=== PATIENT | female | born 1975 | race Two or more races ===

== ENCOUNTER 2017-12-30 20:22 | Emergency (ER) | payer MEDICAID ==
[~2017-12-30] VITALS: Ht 177.8 cm; Wt 97.5 kg
[2017-12-30 20:29] VITALS: Ht 177.8 cm; Wt 97.5 kg
[2017-12-30 21:26] LABS: BASOPHIL % 0.3 % (0-2); PLATELET COUNT 229 x10^3mcL (130-400); RED CELL DISTRIBUTION WIDTH 14.1 % (11.5-14.5)
[2017-12-30 21:39] LABS: CALCIUM 8.8 mg/dL (8.5-10.1); CARBON DIOXIDE 23.8 mmol/L (21-32); CHLORIDE SERUM 103 mmol/L (98-107); CREATININE SERUM 0.9 mg/dL (0.6-1.0); GFR1 > 60 mL/min; GLUCOSE SERUM 114 mg/dL (74-106); POTASSIUM SERUM 4.2 mmol/L (3.5-5.1); SODIUM SERUM 136 mmol/L (136-145)
[2017-12-30 21:43] LABS: ALBUMIN 3.6 g/dL (3.4-5.0); ALKALINE PHOSPHATASE 35 U/L (46-116); ALT/SGPT 65 U/L (14-59); AST/SGOT 38 U/L (15-37); BILIRUBIN TOTAL 0.2 mg/dL (0.20-1.00); TOTAL PROTEIN, SERUM 7.5 g/dL (6.4-8.2)
[2017-12-31 00:08] VITALS: BP 110/56
== END 2017-12-31 00:08 | disposition home or self-care (01) ==
LOC: ED 20:22
PROVIDERS: Emergency Medicine
DX: R07.89 Other chest pain (principal); M54.5 Low back pain; M54.30 Sciatica, unspecified side
CPT/HCPCS: 36415; 83880; J1885; Q0092

== ENCOUNTER 2018-01-07 18:55 | Emergency (ER) | payer MEDICAID ==
[~2018-01-07] VITALS: Ht 177.8 cm; Wt 95.2 kg
[2018-01-07 19:12] VITALS: BP 111/82
== END 2018-01-07 20:08 | disposition home or self-care (01) ==
LOC: ED 18:55
DX: K12.0 Recurrent oral aphthae (principal)

== ENCOUNTER 2018-03-23 16:06 | Emergency (ER) | payer MEDICAID ==
[~2018-03-23] VITALS: Ht 177.8 cm; Wt 96.2 kg
[2018-03-23 16:08] VITALS: Ht 177.8 cm; Wt 96.2 kg
[2018-03-23 16:53] VITALS: BP 124/75
== END 2018-03-23 16:53 | disposition home or self-care (01) ==
LOC: ED 16:06
DX: K62.5 Hemorrhage of anus and rectum (principal); R50.9 Fever, unspecified

== ENCOUNTER 2018-05-13 11:11 | Emergency (ER) | payer MEDICAID ==
[~2018-05-13] VITALS: Ht 177.8 cm; Wt 96.6 kg
[2018-05-13 11:21] VITALS: Ht 177.8 cm; Wt 96.6 kg
[2018-05-13 13:47] VITALS: BP 102/57
== END 2018-05-13 13:47 | disposition home or self-care (01) ==
LOC: ED 11:11
DX: S29.011A Strain of muscle and tendon of front wall of thorax, initial encounter (principal); X58.XXXA Exposure to other specified factors, initial encounter; Y93.89 Activity, other specified; Y92.89 Other specified places as the place of occurrence of the external cause; Y99.8 Other external cause status
CPT/HCPCS: J1885; Q0092

== ENCOUNTER 2018-06-08 11:44 | Emergency (ER) | payer MEDICAID ==
[~2018-06-08] VITALS: Ht 175.3 cm; Wt 100.2 kg
[2018-06-08 11:50] VITALS: BP 115/82; Ht 175.3 cm; Wt 100.2 kg
== END 2018-06-08 12:42 | disposition home or self-care (01) ==
LOC: ED 11:44
DX: J06.9 Acute upper respiratory infection, unspecified (principal)

== ENCOUNTER 2018-06-18 18:45 | Emergency (ER) | payer MEDICAID ==
[~2018-06-18] VITALS: Ht 175.3 cm; Wt 99.3 kg
[2018-06-18 18:53] VITALS: Ht 175.3 cm; Wt 99.3 kg
[2018-06-18 20:50] LABS: BASOPHIL % 0.4 % (0-2); PLATELET COUNT 254 x10^3mcL (130-400)
[2018-06-18 20:57] LABS: CALCIUM 8.3 mg/dL (8.5-10.1); CARBON DIOXIDE 23.8 mmol/L (21-32); CHLORIDE SERUM 107 mmol/L (98-107); CREATININE SERUM 0.9 mg/dL (0.6-1.0); GFR1 > 60 mL/min; GLUCOSE SERUM 130 mg/dL (74-106); POTASSIUM SERUM 3.6 mmol/L (3.5-5.1); SODIUM SERUM 141 mmol/L (136-145)
[2018-06-18 21:01] LABS: ALKALINE PHOSPHATASE 44 U/L (46-116); ALT/SGPT 87 U/L (14-59); AST/SGOT 48 U/L (15-37); BILIRUBIN TOTAL 0.19 mg/dL (0.20-1.00); TOTAL PROTEIN, SERUM 7.3 g/dL (6.4-8.2)
[2018-06-18 21:14] LABS: ALBUMIN 3.2 g/dL (3.4-5.0)
[2018-06-18 21:32] LABS: AMPHETAMINE QUAL UR NONE DETECTED (See below)
[2018-06-18 22:40] VITALS: BP 110/73
== END 2018-06-18 22:40 | disposition home or self-care (01) ==
LOC: ED 18:45
PROVIDERS: Emergency Medicine
DX: R07.89 Other chest pain (principal); M54.42 Lumbago with sciatica, left side
CPT/HCPCS: 36415; G0480; J1885

== ENCOUNTER 2018-06-30 09:34 | Emergency (ER) | payer MEDICAID ==
[~2018-06-30] VITALS: Ht 175.3 cm; Wt 97.5 kg
[2018-06-30 09:43] VITALS: Ht 175.3 cm; Wt 97.5 kg
[2018-06-30 11:23] VITALS: BP 136/79
== END 2018-06-30 11:23 | disposition home or self-care (01) ==
LOC: ED 09:34
DX: M54.6 Pain in thoracic spine (principal); Z87.39 Personal history of other diseases of the musculoskeletal system and connective tissue; M54.40 Lumbago with sciatica, unspecified side
CPT/HCPCS: J1100; J1885

== ENCOUNTER 2018-07-08 19:43 | Emergency (ER) | payer MEDICAID ==
[2018-07-08 19:46] VITALS: Ht 175.3 cm
[2018-07-08 20:35] LABS: microscopic required? NO
[2018-07-08 20:44] LABS: UA SPECIFIC GRAVITY >=1.030 (1.005-1.035); urine erythrocyte NEGATIVE (NEGATIVE)
[2018-07-08 20:45] LABS: BASOPHIL % 0.4 % (0-2); PLATELET COUNT 236 x10^3mcL (130-400); RED CELL DISTRIBUTION WIDTH 13.6 % (11.5-14.5)
[2018-07-08 20:53] LABS: CALCIUM 8.3 mg/dL (8.5-10.1); CARBON DIOXIDE 24.3 mmol/L (21-32); CHLORIDE SERUM 104 mmol/L (98-107); CREATININE SERUM 0.8 mg/dL (0.6-1.0); GFR1 > 60 mL/min; GLUCOSE SERUM 171 mg/dL (74-106); POTASSIUM SERUM 3.7 mmol/L (3.5-5.1); SODIUM SERUM 139 mmol/L (136-145)
[2018-07-08 20:58] LABS: ALKALINE PHOSPHATASE 41 U/L (46-116); ALT/SGPT 88 U/L (14-59); AMYLASE 106 U/L (25-115); AST/SGOT 41 U/L (15-37); BILIRUBIN TOTAL 0.1 mg/dL (0.20-1.00); HDL CHOLESTEROL 48 mg/dL (40-60); LIPASE 376 IU/L (73-393); TOTAL PROTEIN, SERUM 7.2 g/dL (6.4-8.2)
[2018-07-08 21:04] LABS: AMPHETAMINE QUAL UR NONE DETECTED (See below)
[2018-07-08 21:07] LABS: ALBUMIN 3.3 g/dL (3.4-5.0); CHOLESTEROL 211 mg/dL (<200)
[2018-07-08 22:23] VITALS: BP 111/71
== END 2018-07-08 22:23 | disposition home or self-care (01) ==
LOC: ED 19:43
PROVIDERS: Emergency Medicine
DX: M79.18 Myalgia, other site (principal); M48.02 Spinal stenosis, cervical region; G47.00 Insomnia, unspecified; M54.30 Sciatica, unspecified side
CPT/HCPCS: 36415; 83880; J1100; J1885

== ENCOUNTER 2018-09-11 12:43 | Emergency (ER) | payer MEDICAID ==
[~2018-09-11] VITALS: Ht 177.8 cm; Wt 104.3 kg
[2018-09-11 12:57] VITALS: Ht 177.8 cm; Wt 104.3 kg
[2018-09-11 15:27] VITALS: BP 119/62
== END 2018-09-11 15:27 | disposition home or self-care (01) ==
LOC: ED 12:43
DX: T78.40XA Allergy, unspecified, initial encounter (principal); Z98.890 Other specified postprocedural states; X58.XXXA Exposure to other specified factors, initial encounter
CPT/HCPCS: J7512; Q0163

== ENCOUNTER 2018-09-16 21:59 | Emergency (ER) | payer MEDICAID ==
[~2018-09-16] VITALS: Ht 175.3 cm; Wt 101.2 kg
[2018-09-16 22:03] VITALS: Ht 175.3 cm; Wt 101.2 kg
[2018-09-16 22:36] LABS: BASOPHIL % 1.9 % (0-2); PLATELET COUNT 238 x10^3mcL (130-400); RED CELL DISTRIBUTION WIDTH 12.6 % (11.5-14.5)
[2018-09-16 22:46] LABS: CALCIUM 8.4 mg/dL (8.5-10.1); CARBON DIOXIDE 25.2 mmol/L (21-32); CHLORIDE SERUM 104 mmol/L (98-107); GFR1 > 60 mL/min; GLUCOSE SERUM 134 mg/dL (74-106); POTASSIUM SERUM 3.8 mmol/L (3.5-5.1); SODIUM SERUM 141 mmol/L (136-145)
[2018-09-16 22:51] LABS: ALBUMIN 3.8 g/dL (3.4-5.0); ALKALINE PHOSPHATASE 42 U/L (46-116); ALT/SGPT 73 U/L (14-59); AST/SGOT 29 U/L (15-37); BILIRUBIN TOTAL 0.26 mg/dL (0.20-1.00); LIPASE 282 IU/L (73-393)
[2018-09-17 00:38] VITALS: BP 113/71
== END 2018-09-17 00:38 | disposition home or self-care (01) ==
LOC: ED 21:59
PROVIDERS: Emergency Medicine
DX: K29.70 Gastritis, unspecified, without bleeding (principal); M54.30 Sciatica, unspecified side; Z98.890 Other specified postprocedural states
CPT/HCPCS: 36415; J1885; Q0092

== ENCOUNTER 2018-11-28 11:14 | Emergency (ER) | payer MEDICAID ==
[~2018-11-28] VITALS: Ht 175.3 cm; Wt 103.0 kg
[2018-11-28 11:17] VITALS: BP 115/77; Ht 175.3 cm; Wt 103.0 kg
== END 2018-11-28 12:42 | disposition home or self-care (01) ==
LOC: ED 11:14
DX: K59.4 Anal spasm (principal)

== ENCOUNTER 2018-11-30 14:19 | Emergency (ER) | payer MEDICAID ==
[~2018-11-30] VITALS: Ht 167.6 cm; Wt 101.6 kg
[2018-11-30 14:26] VITALS: Ht 167.6 cm; Wt 101.6 kg
[2018-11-30 17:07] VITALS: BP 120/82
[2018-11-30 17:11] LABS: microscopic required? YES; urine erythrocyte TRACE (NEGATIVE)
== END 2018-11-30 17:07 | disposition home or self-care (01) ==
LOC: ED 14:19
PROVIDERS: Emergency Medicine
DX: N39.0 Urinary tract infection, site not specified (principal)
CPT/HCPCS: 87491; 87591; J1885

== ENCOUNTER 2018-12-03 12:56 | Emergency (ER) | payer MEDICAID ==
[~2018-12-03] VITALS: Ht 172.7 cm; Wt 104.3 kg
[2018-12-03 13:21] VITALS: Ht 172.7 cm; Wt 104.3 kg
[2018-12-03 15:54] LABS: CALCIUM 8.2 mg/dL (8.5-10.1); CARBON DIOXIDE 30.8 mmol/L (21-32); CHLORIDE SERUM 105 mmol/L (98-107); CREATININE SERUM 0.8 mg/dL (0.6-1.0); GFR1 > 60 mL/min; GLUCOSE SERUM 92 mg/dL (74-106); POTASSIUM SERUM 4.1 mmol/L (3.5-5.1); SODIUM SERUM 141 mmol/L (136-145)
[2018-12-03 15:59] LABS: ALBUMIN 3.4 g/dL (3.4-5.0); ALKALINE PHOSPHATASE 35 U/L (46-116); ALT/SGPT 139 U/L (14-59); AST/SGOT 91 U/L (15-37); LIPASE 280 IU/L (73-393); TOTAL PROTEIN, SERUM 7.7 g/dL (6.4-8.2)
[2018-12-03 16:03] LABS: BASOPHIL % 0.3 % (0-2); PLATELET COUNT 198 x10^3mcL (130-400); RED CELL DISTRIBUTION WIDTH 13.4 % (11.5-14.5)
[2018-12-03 16:13] LABS: UA SPECIFIC GRAVITY >=1.030 (1.005-1.035); microscopic required? YES; urine erythrocyte NEGATIVE (NEGATIVE)
[2018-12-03 18:45] VITALS: BP 121/71
== END 2018-12-03 18:45 | disposition home or self-care (01) ==
LOC: ED 12:56
PROVIDERS: Emergency Medicine
DX: K62.89 Other specified diseases of anus and rectum (principal); R10.2 Pelvic and perineal pain; Z98.890 Other specified postprocedural states
CPT/HCPCS: J1885; J2405; Q9966; Q9967

== ENCOUNTER 2018-12-27 09:34 | Emergency (ER) | payer OTHER ==
[~2018-12-27] VITALS: Ht 175.3 cm; Wt 104.3 kg
[2018-12-27 09:37] VITALS: Ht 175.3 cm; Wt 104.3 kg
[2018-12-27 10:26] LABS: CALCIUM 8.4 mg/dL (8.5-10.1); CARBON DIOXIDE 28.7 mmol/L (21-32); CHLORIDE SERUM 104 mmol/L (98-107); CREATININE SERUM 0.9 mg/dL (0.6-1.0); GFR1 > 60 mL/min; GLUCOSE SERUM 127 mg/dL (74-106); POTASSIUM SERUM 4.3 mmol/L (3.5-5.1); SODIUM SERUM 140 mmol/L (136-145)
[2018-12-27 10:30] LABS: ALBUMIN 3.4 g/dL (3.4-5.0); ALKALINE PHOSPHATASE 32 U/L (46-116); ALT/SGPT 112 U/L (14-59); AST/SGOT 58 U/L (15-37); BILIRUBIN TOTAL 0.24 mg/dL (0.20-1.00); CHOLESTEROL 190 mg/dL (<200); CHOLESTEROL/HDL RATIO 4.2; HDL CHOLESTEROL 45 mg/dL (40-60); LIPASE 331 IU/L (73-393); TOTAL PROTEIN, SERUM 7.1 g/dL (6.4-8.2)
[2018-12-27 10:32] LABS: FREE T4 0.56 ng/dL (0.76-1.46); FREE THYROXINE INDEX 1.5 ug/dL (1.4-4.5); T4(THYROXINE) 4.8 ug/dL (4.7-13.3)
[2018-12-27 10:34] LABS: TRIGLYCERIDES 348 mg/dL (<150)
[2018-12-27 10:47] LABS: T3 TOTAL 0.78 ng/mL
[2018-12-27 10:51] LABS: BASOPHIL % 0.3 % (0-2); PLATELET COUNT 191 x10^3mcL (130-400); RED CELL DISTRIBUTION WIDTH 14.1 % (11.5-14.5)
[2018-12-27 11:43] VITALS: BP 122/77
== END 2018-12-27 11:43 | disposition home or self-care (01) ==
LOC: ED 09:34
PROVIDERS: Specialist
DX: M94.0 Chondrocostal junction syndrome [Tietze] (principal); G89.29 Other chronic pain; M54.30 Sciatica, unspecified side
CPT/HCPCS: 36415; 83880; 84439; J1885; Q0092

== ENCOUNTER 2019-01-06 08:31 | Emergency (ER) | payer OTHER ==
[~2019-01-06] VITALS: Ht 175.3 cm; Wt 99.6 kg
[2019-01-06 08:39] VITALS: Ht 175.3 cm; Wt 99.6 kg
[2019-01-06 10:24] VITALS: BP 128/74
== END 2019-01-06 10:24 | disposition home or self-care (01) ==
LOC: ED 08:31
DX: G89.29 Other chronic pain (principal); M54.6 Pain in thoracic spine; M54.2 Cervicalgia
CPT/HCPCS: J1885

== ENCOUNTER 2019-01-06 10:35 | Emergency (ER) | payer OTHER ==
[~2019-01-06] VITALS: Ht 177.8 cm; Wt 99.3 kg
[2019-01-06 10:39] VITALS: BP 120/94; Ht 177.8 cm; Wt 99.3 kg
== END 2019-01-06 11:03 | disposition left against medical advice (07) ==
LOC: ED 10:35
DX: Z53.21 Procedure and treatment not carried out due to patient leaving prior to being seen by health care provider (principal)

== ENCOUNTER 2019-01-14 09:17 | Emergency (ER) | payer OTHER ==
[~2019-01-14] VITALS: Ht 175.3 cm; Wt 100.7 kg
[2019-01-14 09:19] VITALS: BP 117/80; Ht 175.3 cm; Wt 100.7 kg
== END 2019-01-14 09:33 | disposition home or self-care (01) ==
LOC: ED 09:17
DX: G89.29 Other chronic pain (principal); M54.5 Low back pain

== ENCOUNTER 2019-01-26 16:22 | Emergency (ER) | payer OTHER ==
[~2019-01-26] VITALS: Ht 175.3 cm; Wt 100.2 kg
[2019-01-26 16:24] VITALS: Ht 175.3 cm; Wt 100.2 kg
[2019-01-26 20:09] VITALS: BP 108/70
== END 2019-01-26 20:09 | disposition home or self-care (01) ==
LOC: ED 16:22
DX: G89.29 Other chronic pain (principal); R07.89 Other chest pain; M54.2 Cervicalgia; M54.5 Low back pain
CPT/HCPCS: J1885; J2270; Q0162

== ENCOUNTER 2019-02-01 13:01 | Emergency (ER) | payer OTHER ==
[~2019-02-01] VITALS: Ht 175.3 cm; Wt 100.2 kg
[2019-02-01 13:03] VITALS: BP 129/78; Ht 175.3 cm; Wt 100.2 kg
== END 2019-02-01 13:53 | disposition home or self-care (01) ==
LOC: ED 13:01
DX: R07.89 Other chest pain (principal); G89.29 Other chronic pain; M54.5 Low back pain; M54.6 Pain in thoracic spine

== ENCOUNTER 2019-02-12 09:57 | Emergency (ER) | payer OTHER ==
[~2019-02-12] VITALS: Ht 175.3 cm; Wt 98.9 kg
[2019-02-12 10:00] VITALS: BP 129/76
== END 2019-02-12 11:46 | disposition home or self-care (01) ==
LOC: ED 09:57
DX: G89.4 Chronic pain syndrome (principal); M54.2 Cervicalgia; M54.9 Dorsalgia, unspecified; M54.30 Sciatica, unspecified side

== ENCOUNTER 2019-03-12 22:34 | Emergency (ER) | payer OTHER ==
[~2019-03-12] VITALS: Ht 175.3 cm; Wt 96.6 kg
[2019-03-12 22:38] VITALS: Ht 175.3 cm; Wt 96.6 kg
[2019-03-13 02:28] VITALS: BP 107/59
== END 2019-03-13 02:31 | disposition home or self-care (01) ==
LOC: ED 22:34
DX: R07.89 Other chest pain (principal); G89.29 Other chronic pain; M54.2 Cervicalgia
CPT/HCPCS: J1885; J2270

== ENCOUNTER 2019-03-24 05:45 | Emergency (ER) | payer OTHER ==
[~2019-03-24] VITALS: Ht 175.3 cm; Wt 99.3 kg
[2019-03-24 05:52] VITALS: BP 117/75; Ht 175.3 cm; Wt 99.3 kg
== END 2019-03-24 07:07 | disposition left against medical advice (07) ==
LOC: ED 05:45
DX: S20.212A Contusion of left front wall of thorax, initial encounter (principal); S40.022A Contusion of left upper arm, initial encounter; F07.81 Postconcussional syndrome; G89.29 Other chronic pain; Y04.0XXA Assault by unarmed brawl or fight, initial encounter; Y93.89 Activity, other specified; Y92.810 Car as the place of occurrence of the external cause; Y99.8 Other external cause status
CPT/HCPCS: Q0092

== ENCOUNTER 2019-04-27 15:21 | Emergency (ER) | payer MEDICAID ==
[~2019-04-27] VITALS: Ht 177.8 cm; Wt 96.6 kg
[2019-04-27 15:53] VITALS: Ht 177.8 cm; Wt 96.6 kg
== END 2019-04-27 18:08 | disposition home or self-care (01) ==
LOC: ED 15:21
DX: N60.12 Diffuse cystic mastopathy of left breast (principal); N60.11 Diffuse cystic mastopathy of right breast; G89.29 Other chronic pain
CPT/HCPCS: J1885

== ENCOUNTER 2019-04-28 22:20 | Emergency (ER) | payer MEDICAID ==
[~2019-04-28] VITALS: Ht 175.3 cm; Wt 99.8 kg
[2019-04-28 22:23] VITALS: BP 107/65; Ht 175.3 cm; Wt 99.8 kg
== END 2019-04-28 23:05 | disposition home or self-care (01) ==
LOC: ED 22:20
DX: N64.4 Mastodynia (principal); G89.29 Other chronic pain; M54.40 Lumbago with sciatica, unspecified side

== ENCOUNTER 2019-05-02 17:13 | Emergency (ER) | payer MEDICAID ==
[~2019-05-02] VITALS: Ht 175.3 cm; Wt 99.8 kg
[2019-05-02 17:26] VITALS: Ht 175.3 cm; Wt 99.8 kg
[2019-05-02 18:51] VITALS: BP 112/69
== END 2019-05-02 18:51 | disposition home or self-care (01) ==
LOC: ED 17:13
DX: N64.4 Mastodynia (principal); G89.29 Other chronic pain
CPT/HCPCS: J1885

== ENCOUNTER 2019-05-10 17:15 | Emergency (ER) | payer MEDICAID ==
[~2019-05-10] VITALS: Ht 177.8 cm; Wt 98.4 kg
[2019-05-10 17:18] VITALS: BP 113/74; Ht 177.8 cm; Wt 98.4 kg
== END 2019-05-10 18:23 | disposition home or self-care (01) ==
LOC: ED 17:15
DX: G89.29 Other chronic pain (principal); N64.4 Mastodynia; N63.0 Unspecified lump in unspecified breast
CPT/HCPCS: J2270; J2405

== ENCOUNTER 2019-05-21 07:41 | Emergency (ER) | payer OTHER ==
[~2019-05-21] VITALS: Ht 177.8 cm; Wt 94.8 kg
[2019-05-21 07:45] VITALS: BP 116/78; Ht 177.8 cm; Wt 94.8 kg
== END 2019-05-21 08:57 | disposition home or self-care (01) ==
LOC: ED 07:41
DX: S22.32XA Fracture of one rib, left side, initial encounter for closed fracture (principal); G89.29 Other chronic pain; M54.2 Cervicalgia; W18.30XA Fall on same level, unspecified, initial encounter; Y93.89 Activity, other specified; Y92.89 Other specified places as the place of occurrence of the external cause; Y99.8 Other external cause status
CPT/HCPCS: J1885

== ENCOUNTER 2019-05-22 07:10 | Emergency (ER) | payer OTHER ==
[~2019-05-22] VITALS: Ht 177.8 cm; Wt 96.2 kg
[2019-05-22 07:13] VITALS: BP 126/48; Ht 177.8 cm; Wt 96.2 kg
== END 2019-05-22 08:45 | disposition home or self-care (01) ==
LOC: ED 07:10
DX: G89.29 Other chronic pain (principal); S20.212A Contusion of left front wall of thorax, initial encounter; M54.2 Cervicalgia; X58.XXXA Exposure to other specified factors, initial encounter; Y93.89 Activity, other specified; Y92.89 Other specified places as the place of occurrence of the external cause; Y99.8 Other external cause status

== ENCOUNTER 2019-08-12 19:41 | Emergency (ER) | payer OTHER ==
[~2019-08-12] VITALS: Ht 175.3 cm; Wt 96.2 kg
[2019-08-12 19:46] VITALS: Ht 175.3 cm; Wt 96.2 kg
[2019-08-12 21:28] VITALS: BP 113/61
== END 2019-08-12 21:28 | disposition home or self-care (01) ==
LOC: ED 19:41
DX: S00.33XA Contusion of nose, initial encounter (principal); R04.0 Epistaxis; W22.8XXA Striking against or struck by other objects, initial encounter; Y93.89 Activity, other specified; Y92.89 Other specified places as the place of occurrence of the external cause; Y99.8 Other external cause status; R03.0 Elevated blood-pressure reading, without diagnosis of hypertension